=== PATIENT | male | born 1960 | race Two or more races ===

== ENCOUNTER → 2020-08-14 | Outpatient (CLI) | payer BC ==
--- NOTE | 2020-08-14 17:19 | KCIC ---
MRI study of the right knee without contrast Clinical indications: Right knee pain anteriorly. Worsening chronic knee pain and swelling. M 25.561. TECHNIQUE: Noncontrast MRI sequences of the right knee were performed in all 3 planes. FINDINGS: The anterior and posterior cruciate ligaments are intact. The quadriceps and patellar tendo ns are intact. There is a tear of the inferior articular surface of the posterior horn. The root liga ment appears redundant and therefore the posterior horn appears to be displaced. There is a defect of the posterior horn as result of the tear. This defect measures 5 mm transversely. There is a small h orizontal cleavage tear of the body of the lateral meniscus but no parameniscal cyst is seen here. Th e inner articular edge of the body of the lateral meniscus is attenuated. No articular surface tear o f the medial meniscus is seen. The medial collateral ligament is intact and no meniscocapsular separa tion is seen. The lateral collateral ligament complex and iliotibial band and popliteus tendon are in tact. No acute posterior lateral corner injury is seen although the meniscal popliteal ligaments are thin as is the arcuate ligament. There is a loss of the articular cartilage of the lateral tibial fem oral joint compartment with [id number] interface. There is stress reaction bone marrow edema of the lateral tibial plateau and lateral femoral condyle. There is moderate degenerative spurring of the l ateral tibiofemoral joint compartment. There is mild chondromalacia of the medial tibiofemoral joint compartment. There is mild degenerative spurring of this joint compartment. There is a degenerative c yst of the anterior aspect of the medial tibial plateau. No fracture line or marrow infiltrative proc ess is seen. The patella is normally aligned. There is mild chondromalacia patellae without articular cartilage defect. The trochlear articular cartilage is unremarkable. There is mild degenerative spur ring of the patellofemoral joint compartment. The medial and lateral retinacular ligaments are intact . No Sharif's cyst is seen. There is moderate size knee joint effusion present. No loose body is seen. IMPRESSION: Complex tear of the posterior horn of the lateral meniscus. The posterior horn appears to be displaced superiorly with a redundant posterior root ligament. There is a defect of the posterior horn. There is a small horizontal cleavage tear of the body lateral meniscus but no parameniscal cys t is seen. There is degenerative attenuation of the inner articular edge of the body of the lateral m eniscus. Severe chondromalacia with loss of articular cartilage of the lateral tibial femoral joint compartmen t with [id number] interface and stress reaction bone marrow edema of the lateral tibial plateau and lateral femoral condyle. Moderate degenerative spurring of this joint compartment. Mild chondromalacia and degenerative spurring of the medial tibiofemoral joint compartment. A degener ative cyst of the anterior medial tibial plateau is seen. Mild chondromalacia patellae. Electronically signed by: Elia Lima MD (08/14/2020 5:17 PM) [id number]
== END ==
LOC: KCIC MRI 15:05
PROVIDERS: ATTEND Orthopaedic Surgery
DX: S83.241A Other tear of medial meniscus, current injury, right knee, initial encounter (principal); M94.261 Chondromalacia, right knee; M76.891 Other specified enthesopathies of right lower limb, excluding foot; X58.XXXA Exposure to other specified factors, initial encounter; Y93.89 Activity, other specified; Y92.89 Other specified places as the place of occurrence of the external cause; Y99.8 Other external cause status
CPT/HCPCS: 73721